=== PATIENT | male | born 1990 | race Caucasian/White ===

== ENCOUNTER 2017-05-31 09:29 | Emergency (ER) | payer OTHER ==
[~2017-05-31] VITALS: Ht 188 cm; Wt 78.0 kg
[2017-05-31 10:34] LABS: ASPARTATE AMINO TRANSFERASE 39 U/L (15-37); BLOOD UREA NITROGEN 9 mg/dL (7-18)
[2017-05-31 10:38] LABS: ACETAMINOPHEN < 2 mcg/mL (10-30)
[2017-05-31 11:30] VITALS: BP 100/64
== END 2017-05-31 13:38 | disposition home or self-care (01) ==
LOC: EDBD 09:29 → ED 11:36
DX: F14.129 Cocaine abuse with intoxication, unspecified (principal); F15.129 Other stimulant abuse with intoxication, unspecified
CPT/HCPCS: 36415; 80053; 80307; 80329; 85025; 99284; G0480